=== PATIENT | male | born 1955 | race Caucasian/White ===

== ENCOUNTER 2025-03-05 11:50 | Emergency (ER) | payer OTHER, BC, SELFPAY ==
[2025-03-05 11:53] VITALS: BP 203/98
--- NOTE | 2025-03-05 12:21 | ED.GENMED ---
History of Present Illness
General
Chief Complaint: Blood Pressure Problem
Source: patient
Exam Limitations: none
Time Seen by Provider: 03/05/25 12:11
History of Present Illness
History of Present Illness:
See MDM
Past History
Past History
ED Past Medical History: HTN
ED Past Surgical History: None
Social History
Tobacco: Non-smoker
Alcohol: None
Drug: None
Personal:
Living: with family
Phy Exam
Physical Exam
Physical Exam:
See MDM
Course
Orders/Labs/Results
Orders:
Orders
03/05/25 11:57
ECG [Electrocardiogram (*1)] Urgent
Reason for Study: Hypertension, Benign
EKG- Treatment ONCE
03/05/25 12:19
CT Head W/o Iv Contrast Urgent
Comment:
Reason For Exam: HTN, headache
Ibuprofen [Motrin] 600 mg PO NOW STA
03/05/25 12:20
Amlodipine [Norvasc] 5 mg PO ONCE ONE
03/05/25 12:30
Complete Blood Count/With Diff Urgent
Comprehensive Metabolic Panel Urgent
Troponin I Urgent
Abnormal Lab Results
03/05/25
12:30
MCH 31.2 H pg
(27.0-31.0)
Glucose 131 H mg/dl
(70-99)
Total Bilirubin 1.9 H mg/dl
(0.2-1.3)
03/05/25 12:30
03/05/25 12:30
Vital Signs
Initial and Last Documented VS:
Initial Vital Signs
Temp Pulse Resp BP Pulse Ox
98 F 97 18 203/98 98
03/05/25 11:53 03/05/25 11:53 03/05/25 11:53 03/05/25 11:53 03/05/25 11:53
Last Documented Vital Signs
Temp Pulse Resp BP Pulse Ox
98 F 88 17 117/72 96
03/05/25 11:53 03/05/25 13:00 03/05/25 13:00 03/05/25 13:00 03/05/25 12:16
MDM/Problems Addressed
Differential Diagnosis Includes:
HPI and MDM Narrative:
70-year-old male presenting with elevated blood pressure. Over the past 4 days, patient has had vague symptoms which include headache, lip tingling, weakness and fatigue. Since he has not been feeling well, he started taking his blood pressure and
realized it was 200/100. He has been compliant with his irbesartan. He does acknowledge that he does not take his blood pressure routinely. Because of this, we discussed that he may live in the higher range and require new medicine regardless.
Will obtain basic blood work to rule out any endorgan damage. Low suspicion for ACS given no exertional component
Given the intermittent headache and elevated blood pressure, will obtain CT head. On arrival, blood pressure 170s/70s. Will start amlodipine
Physical exam
General: Well appearing and non-toxic
HEENT: protecting airway. Pupils equal reactive. EOMI
Neck: appears supple
CV: No evidence of cyanosis. Regular and rhythm
Resp: No accessory muscle use
Abd: Non-distended
Extremities: No deformities. No leg edema
Neuro: alert
Psych: Normal affect
Skin: Intact
Problems Addressed including Acute and Chronic Conditions affecting care:
1. Hypertension
Acuity: acute
Prognosis: unstable
Details: Will obtain CT head and rule out endorgan damage with blood work. Will start amlodipine to be added to his irbesartan
Updates
Blood work without significant abnormality. CT head negative for acute abnormality. Blood pressure improving and patient feel much better and feels comfortable going home
Differential Diagnosis (but not limited to): Hypertension emergency, medication noncompliance, acute kidney injury
Testing considered: Second troponin but doubt ACS given persistent symptoms without exertion
Drug therapy (if applicable): OTC meds, please see d/c instruction regarding Rx drugs
Amount and/or Complexity of Data Reviewed
Clinical info obtained from: Patient
External data reviewed: N/A
Labs I independently reviewed (but not limited to): White blood cell count normal
Radiology: The CT scan was personally and independently reviewed. In addition, official CT report reviewed.
Pulse Ox: not hypoxic
EKG independently reviewed: Sinus rhythm, normal axis, no STEMI
Automobile Appraiser: N/A
Critical Care: N/A
Risk of Complication:
Social Determinants of health: Good social support
Discussed with other providers: N/A
Escalation of Care includes Admit/Obs: After being observed in the Emergency Department, pt stable for discharge.
Occasional wrong word or 'sound a like' substitutions may have occurred due to the inherent limitations of voice recognition software. Read the chart carefully and recognize, using context, where substitutions have occurred.
*Critical Care Note
Total Time (30-74mins, 75-104mins- exclusive of procedures): Not Applicable
ED Attending Note
-
Portions of this chart may have been created with voice recognition software.� Occasional wrong word or��sound alike� substitutions may have occurred due to the inherent limitations of voice recognition software.
Discharge Plan
Departure
Patient Disposition: Home (Routine Discharge)
Date of Disposition: 03/05/25
Time of Disposition: 16:08
Patient with high blood pressure during this ER visit?: Yes
Discharge Problem:
HTN (hypertension)
Instructions: High Blood Pressure (DC), BLOOD PRESSURE
Prescriptions:
New
amlodipine [Norvasc] 5 mg tablet
5 mg PO BID Qty: 60 0RF
No Action
hydrocodone-acetaminophen 1 TABLET tablet
1 tab PO Q4HPRN PRN (Reason: severe pain) Qty: 20 0RF
Referrals:
Moe Sharma MD [Family Provider] -
Activity Restrictions/Additional Instructions:
Please return for any worsening symptoms.
You may return at any time if you have further concerns.
Please follow up with your doctor at the first available appointment, preferably this week.
Thank you for choosing [facility].
Interventions
Interventions:
*Risk Screen - Suicide Last Done: 03/05/25 11:53
*General Assessment Last Done: 03/05/25 11:53
*Neglect/Abuse Screening Last Done: 03/05/25 11:53
*ED- Fall Risk Assessment Last Done: 03/05/25 12:32
*ED COVID-19 Vaccine History Last Done: 03/05/25 12:32
ED- Cardiac Assessment Last Done: 03/05/25 12:32
ED- Neurological Assessment Last Done: 03/05/25 12:32
ED- Pulmonary Assessment Last Done: 03/05/25 12:32
Discharge Date and Time
Print Language: ALGERIAN
[2025-03-05] MEDS: NORVASC 5 MG PO (12:31)
[2025-03-05] MEDS: MOTRIN 600 MG PO (12:31)
[2025-03-05 12:32] VITALS: BMI 31.4
[2025-03-05 12:46] LABS: % Basophils 0.5 % (0-2); % Eosinophils 1.7 % (0-6); % Immature Granulocytes 0.4 % (0-0.5); % Lymphocytes 23.9 % (20.5-51.1); % Monocytes 7.4 % (1.7-9.3); % Neutrophils 66.1 % (42.2-75.2); Absolute Eosinophils 0.1 10^3/uL (0-0.7); Absolute Lymphocytes 1.8 10^3/uL (1.2-3.4); Absolute Monocytes 0.6 10^3/uL (0.1-0.6); Absolute Neutrophils 4.9 10^3/uL (1.4-6.5); Hematocrit 41.9 % (39.0-52.0); Hemoglobin 14.9 g/dL (13.0-18.0); Mean Corp Hgb Conc. 35.6 g/dL (33.0-37.0); Mean Corpuscular Hgb 31.2 pg (27.0-31.0); Mean Corpuscular Volume 87.8 fL (80.0-94.0); Mean Platelet Volume 9.8 fL (7.4-10.4); Nucleated Red Blood Cells % 0 % (-); Platelet Count 196 10^3/uL (130-400); Red Blood Cell Count 4.77 10^6/uL (4.70-6.10); Red Cell Dist. Width 11.8 % (11.5-14.5); White Blood Cell Count 7.5 10^3/uL (4.8-10.8)
[2025-03-05 13:00] VITALS: BP 117/72
[2025-03-05 13:06] LABS: ALT (SGPT) 31 U/L (0-50); AST (SGOT) 27 U/L (17-59); Albumin 4.3 g/dl (3.5-5.0); Alkaline Phosphatase 76 U/L (38-126); Blood Urea Nitrogen 13 mg/dl (9-20); Calcium 9.9 mg/dl (8.4-10.2); Carbon Dioxide 24 mmol/L (22-30); Chloride 106 mmol/L (98-107); Estimated Creatinine Clearance 114 ml/min; Glucose 131 mg/dl (70-99); Potassium 4.2 mmol/L (3.5-5.1); Sodium 139 mmol/L (135-145); Total Bilirubin 1.9 mg/dl (0.2-1.3); Total Protein 6.4 g/dl (6.3-8.2); eGFR > 60.00
[2025-03-05 13:16] LABS: Troponin I < 0.012 ng/ml
[2025-03-05 16:03] VITALS: BP 157/73
== END 2025-03-05 16:16 | disposition home or self-care (01) ==
LOC: EMR 11:50
PROVIDERS: EMERGENCY PHYSICIAN Student in an Organized Health Care Education/Training Program; FAMILY PHYSICIAN Family Medicine
DX: I10 Essential (primary) hypertension (principal)
CPT/HCPCS: 99285; 70450; 80053; 84484; 85025; 93005

== ENCOUNTER → 2025-03-16 06:44 | Outpatient (REF) | payer OTHER, SELFPAY | LOC: RAD 06:44 | PROVIDERS: ATTENDING PHYSICIAN Family Medicine | DX: I10 Essential (primary) hypertension (principal) | CPT/HCPCS: 93975 ==

== ENCOUNTER → 2025-04-19 06:44 | Outpatient (REF) | payer OTHER, SELFPAY | LOC: RAD 06:44 | PROVIDERS: ATTENDING PHYSICIAN Nuclear Medicine Nuclear Cardiology; FAMILY PHYSICIAN Family Medicine | DX: I10 Essential (primary) hypertension (principal); I25.10 Atherosclerotic heart disease of native coronary artery without angina pectoris; I70.1 Atherosclerosis of renal artery | CPT/HCPCS: 74174; Q9967 ==

== ENCOUNTER → 2025-05-04 14:25 | Outpatient (REF) | payer OTHER, SELFPAY ==
--- NOTE | 2025-05-04 16:28 | CARDSERVLU ---
Echocardiogram with [facility]ason completed after protocol screening completed. Allergies verified.
Patent IV site: _Left accessory cephalic antecubital 22 G PC____
IV site flushed with 0.9% NaCl pre and post administration.
Diluted bolus method utilized to enhance visualization of ventricular vail.
Total volume given: _3___ mL
Patient tolerated all procedures well without complications.
Heplock D/C ed at 1554, site clear, no redness, no edema. Pressure held, no bleeding, 2x2 applied and taped. Pt offers no complaints.
== END ==
LOC: RCS 14:25
PROVIDERS: ATTENDING PHYSICIAN Nuclear Medicine Nuclear Cardiology; FAMILY PHYSICIAN Family Medicine
DX: I48.0 Paroxysmal atrial fibrillation (principal); I25.10 Atherosclerotic heart disease of native coronary artery without angina pectoris; E78.00 Pure hypercholesterolemia, unspecified
CPT/HCPCS: 93306; Q9950

== ENCOUNTER → 2025-09-18 07:23 | Outpatient (REF) | payer OTHER, SELFPAY | LOC: HWRCS 07:23 | PROVIDERS: ATTENDING PHYSICIAN Nuclear Medicine Nuclear Cardiology; FAMILY PHYSICIAN Family Medicine | DX: I25.10 Atherosclerotic heart disease of native coronary artery without angina pectoris (principal); I48.0 Paroxysmal atrial fibrillation; I10 Essential (primary) hypertension; I49.8 Other specified cardiac arrhythmias; E78.00 Pure hypercholesterolemia, unspecified; E11.9 Type 2 diabetes mellitus without complications | CPT/HCPCS: 78452; 93017; A9500; J2785 ==